=== PATIENT | female | born 1955 | race Caucasian/White ===

== ENCOUNTER → 2017-08-20 | Outpatient (CLI) | payer OTHER ==
[~2017-08-20] VITALS: Ht 170.2 cm; Wt 59.0 kg
[~2017-08-20] MED LIST: AMLODIPINE-BEN1 EAC3 PO; ASPIR 8181 MG PO; ATIVAN0.5 MG PO; BENTYL 10 MG CA10 M1 PO; CARAFATE 1 GM TA1 G1 PO; CHANTIX1 MG PO; DULCOLAX5 MG PO; EFFEXOR XR75 MG PO; LAMICTAL100 MG PO; LOMOTIL TABLET1 EACH PO; MIRTAZAPINE45 MG PO; OXYCODONE HCL 55 MG PO; PHENERGAN 25 MG25 M1 PO; PROTONIX40 M1 PO; QUETIAPINE FUM100 MG PO; SEROQUEL XR50 MG PO; SUMATRIPTA6 MG/0.51 PO; TOPROL XL100 MG PO; ZANTAC 150MG T150 MG PO; ZENPEP DR 25,01 EACH PO; ZOLPIDEM TART12.5 MG PO; ZONISAMIDE 100100 M1 PO
--- NOTE | ~2017-08-20 | HPC ---
[facility] [place] [address] PAIN MANAGEMENT CONSULTATION Name: CALDWELLNORM JAZZY Room #: REG JOSHUAJemima Scanlon.#: [id number] Admission: 08/20/17 Attend Phys: Kamran Arriaza DO Discharge: Date of : 59 Report #: [id number] THIS REPORT FOR: //name// CC: Dr. Christian Escudero MD REFERRING PHYSICIAN: Dr. Christian Schaefer. CHIEF COMPLAINT: Chronic pancreatitis. HISTORY OF PRESENT ILLNESS: As you know, the patient is a 62-year-old female who was seen by [facility] while she was an inpatient at [facility] for acute on chronic pancreatitis. The patient indicates that she was sent home on methadone 10 mg 3 times a day and was seeing some improvement with that medication. She returned to see her primary care physician who initiated medication management with oxycodone 10/325 one tab every 6 hours p.r.n. for pain and discontinued the methadone per the patient. She was recently seen by her reinsurance claim analyst, Dr. Schaefer, who is planning to have the patient undergo restenting and dilation of the duct starting August 26. She was referred to discuss options for treatment and to provide suggestions for therapy to her PCP in the [place] area. She has indicated today pain is at a level of 8/10, daily average at 8/10, worst pain has been is 10/10. She indicates pain is continuous, steady and constant, describes the pain as shooting, cramping, crushing, sharp, stabbing and tender, she indicates pain exacerbated with eating, improves with only pain medications. She has been referred to our clinic to discuss options of treatment through medication management and interventional treatments. PAST MEDICAL HISTORY: 1. Hypertension. 2. Migraines. 3. Bipolar disorder. 4. Chronic insomnia. 5. Chronic pancreatitis with multiple acute flares. 6. Gastroesophageal reflux disease. 7. Seasonal allergies. PAST SURGICAL HISTORY: Tonsillectomy, adenoidectomy, back surgery, hysterectomy, herniorrhaphy, eye surgery, cholecystectomy, Terese fundoplication, brain surgery for aneurysm, right knee and left knee surgeries, hemorrhoidectomy and stenting of the pancreatic duct. SOCIAL HISTORY: The patient admits to an extensive history of smoking up to a pack a day for nearly 40 years, she is now down to 5 cigarettes per day. She denies IV or illicit drug use. Denies any chronic alcohol use. She is on [address] [address] PAIN MANAGEMENT CONSULTATION Name: NORM CALDWELL Room #: REG CLI Ghislaine.#: [id number] Admission: 08/20/17 Attend Phys: Kamran Arriaza DO Discharge: Date of : 59 Report #: [id number] disability, has been so since 2000. She is not in litigation in regards to pain. She is accompanied by a significant other. REVIEW OF SYSTEMS: Positive for weight change, decrease in appetite, night sweats and fever, fatigue and weakness, wearing corrective eyewear, blurred and double vision, sore throat, voice changes, loss of appetite, change in bowel movements, nausea, vomiting, constipation, rectal bleeding, abdominal pain, nocturia, rash and itching, breast pain, frequent and recurrent headaches, numbness and tingling sensations, memory loss with confusion, nervousness, depression, insomnia, bleeding and bruising tendencies, anemia, chronic pancreatitis, seasonal allergies, chronic low back pain. All other review of systems negative per 12-point review of systems other than those listed in history of present illness. PAIN IMPACT SCORE: 53/70 indicating severe interference of daily activities secondary to pain. ALLERGIES: AMYLASE, LIPASE, PROTEASE, CODEINE, BACTRIM, CIPROFLOXACIN, and FLAGYL. CURRENT MEDICATIONS: Quetiapine 100 mg once a day, metoprolol 100 mg once a day, lamotrigine 100 mg at night and 150 mg in the morning, Lomotil 4 times a day, bisacodyl 5 mg once a day, aspirin 81 mg per day, sumatriptan p.r.n., Chantix 1 mg twice a day, lipase, protease, and amylase 3 times a day; oxycodone 10 mg 4 times a day, Seroquel 50 mg twice a day, mirtazapine 45 mg at night, pantoprazole 40 mg per day, amlodipine/benazepril 5/20 once a day, lorazepam 0.5 mg every 6 hours, Effexor 75 mg once a day, ranitidine 150 mg twice a day, Phenergan 25 mg every 6 hours, zonisamide 100 mg once a day, sucralfate 1 g 4 times a day, zolpidem 12.5 mg p.o. at bedtime, and dicyclomine 10 mg 4 times a day. IMAGING: No imaging available. PHYSICAL EXAMINATION: VITAL SIGNS: Blood pressure 156/101, pulse is 85, respiratory rate 16 and unlabored, the patient is 100% on room air, height 5 feet 7 inches tall, weight 130 pounds, and BMI calculated 20.4. GENERAL: Well-developed, well-nourished, well-hydrated 62-year-old female, smells strongly of tobacco smoke, appears much older than stated age, placing current pain score at 8/10. HEENT: Normocephalic, atraumatic. Pupils are equal, round, and reactive to light. Extraocular muscles are intact. Sclerae are nonicteric without injection. NEUROLOGIC: Cranial nerves 2-12 are grossly intact. Speech is fluent. LUNGS: Decreased breath sounds bilaterally, prolonged expiratory phase. There is no wheezing, rhonchi, or rales. [facility] [address] [place] [address] PAIN MANAGEMENT CONSULTATION Name: NORM CALDWELL Room #: REG CLKaiser Foundation HospitalLes.#: [id number] Admission: 08/20/17 Attend Phys: Kamran Arriaza DO Discharge: Date of : 59 Report #: [id number] CARDIOVASCULAR: Regular. No appreciable gallop. No rub. ABDOMEN: Soft, nontender, and nondistended. Normoactive bowel sounds. There are surgical scars from previous surgeries, well healed. EXTREMITIES: Show no clubbing, no cyanosis, and no edema. ASSESSMENT: 1. Chronic pancreatitis. 2. Bipolar disorder. 3. Hypertension. 4. Chronic migraines. 5. Seasonal allergies. PLAN: 1. The patient has been referred to our service for discussion of potential treatment options from a medication management standpoint versus interventional treatment standpoint. I have advised the patient at this time treatment options for chronic pancreatitis somewhat difficult. She was seen in consultation per the request of hospitalist at [facility] when the patient was inpatient and we followed her care in that facility. We provided the patient with methadone therapy 10 mg 3 times a day and was sent home to follow up with her PCP to continue this treatment. She states that she recently saw Dr. Schaefer who indicated that he was unwilling to provide medications for pain control and that she needed to seek suggestions through our services to provide to her PCP. She has been referred to our clinic for the suggestions for treatment. 2. We discussed options for treatment, they would include reinitiating the methadone at 10 mg 3 times a day with no further escalation in treatment. This medication does provide good benefit for the patient, she states she was doing well with the medication, but needs to be taking consistently. If the primary care physician does wish to initiate this therapy, I would recommend a 10 mg t.i.d. dosing. I also recommend monthly visits to the clinic to monitor the efficacy. Given the distance between the patient and our closest clinical offices, this would not be something that could be provided through [facility] due to the long travel times to and from the patient's home, this will have to be handled through the PCP if he wishes to initiate this therapy. 3. Other option of treatment from a medical standpoint would be Butrans patch 15 mcg patch 1 patch per week, this will provide the patient with a partial agonist treatment for chronic pain, it reduces the potential GI side effects and there is no respiratory depression, this is an extremely safe medication from a pain standpoint and again has very little effect upon the GI tract, it is up to the primary care if he wishes to look towards this option, I did discuss with the patient that there is a high possibility that this medication will have some difficulty with coverage and may be quite costly, but it is probably the most effective agent available for chronic pancreatitis issues as it does not tend to exacerbate underlying symptoms. I will defer to the primary team if he wishes to try this medication. 4. We discussed with the patient that the Dr. Stover has recently been involved [facility] [address] [place] [address] PAIN MANAGEMENT CONSULTATION Name: NORM CALDWELL Room #: REG MARY KAY Schmid#: [id number] Admission: 08/20/17 Attend Phys: Kamran Arriaza DO Discharge: Date of : 59 Report #: [id number] in providing traditional spinal cord stimulators for pancreatic pain, we have had a couple of patients that have had this procedure done with Dr. Stover and they have done very well from a pain standpoint, it controls their symptoms to the point where they rarely have to utilize any pain medication. The patient was somewhat interested in this, we will defer to the primary team for referral if they wish to have the patient seen by Dr. Stover. Phone number and address can be obtained if referrals are desired. The patient or primary care can contact our pain clinic specifically to receive that information. This is a more novel approach to chronic pancreatitis, it typically takes a fairly long period of time for the implant to occur, but can improve the patient's symptoms. 5. We wish to thank Dr. Schaefer and Dr. Escudero for the opportunity to see this patient again in consultation. We are hopeful the information provided will give guidance for treatment. It was our pleasure to see the patient while she was in the hospital at [facility], but we do not have the capabilities of following this patient long-term at our [facility] facility as we would not be able to manage her medications appropriately from the distances required for the patient to return on an every 2-week basis to receive medications. I do not feel that this onorous task should be placed upon pts. when medications can be provided through her local occasional caregiver. We again wish to thank you for the opportunity to review the patient's case and we are hopeful the information above will provide some direction for treatment attempting to control the patient's chronic pancreatitis pain. I strongly recommend evaluations for the peripheral nerve stimulator as this is a very novel approach to treatment and has been successful and has weaned the patient off of opioids which is always an improvement in therapy. Again, we wish to thank you for the opportunity to see the patient in consultation. <ELECTRONICALLY SIGNED> By: Kamran Arriaza DO 08/22/17 1110 [id number] Kamran Arriaza DO /nt
[2017-08-20 08:54] VITALS: BP 156/101
== END ==
LOC: PAIN 06:35
DX: K86.1 Other chronic pancreatitis (principal); J30.2 Other seasonal allergic rhinitis; F31.9 Bipolar disorder, unspecified; G43.909 Migraine, unspecified, not intractable, without status migrainosus; I10 Essential (primary) hypertension; K21.9 Gastro-esophageal reflux disease without esophagitis; Z87.891 Personal history of nicotine dependence